=== PATIENT | male | born 1955 | race Caucasian/White ===

== ENCOUNTER 2024-04-08 15:08 | Emergency (ER) | payer MEDICARE ==
[2024-04-08] MEDS ORDERED: Lidocaine 1% 5 ML VIAL INFILT ONE (15:09)
[2024-04-08] MEDS ORDERED: Amoxicillin/Clavulanate K 875-125 MG Tab PO ONE (15:09)
== END 2024-04-08 16:00 | disposition home or self-care (01) ==
LOC: FB.ED 15:08
DX: L02.511 Cutaneous abscess of right hand (principal)
CPT/HCPCS: 10060; 26010; 99283; A9270

== ENCOUNTER 2024-10-08 08:07 | Day surgery (SDC) | payer MEDICARE ==
[~2024-10-08 08:07] MED LIST: Sodium Chloride 0.9% 10 ML Syringe FLUSH PRN
[2024-10-08] MEDS ORDERED: Propofol 200 MG/20 ML SDV IV ONE (08:08)
[2024-10-08] MEDS ORDERED: Lidocaine 1% 5 ML VIAL INJECT ONE (08:08)
[2024-10-08] MEDS: Lactated Ringers 1,000 ML IV SCH (08:32)
[2024-10-08] MEDS: Simethicone Drops 40 MG/0.6 ML 30 ML Bottle ONE (09:56)
== END 2024-10-08 11:27 | disposition home or self-care (01) ==
LOC: FB.SDS 08:07
PROVIDERS: ATTEND Surgery
DX: Z12.11 Encounter for screening for malignant neoplasm of colon (principal); R19.5 Other fecal abnormalities; K57.30 Diverticulosis of large intestine without perforation or abscess without bleeding; K21.9 Gastro-esophageal reflux disease without esophagitis; E78.00 Pure hypercholesterolemia, unspecified; Z87.891 Personal history of nicotine dependence; Z79.899 Other long term (current) drug therapy
CPT/HCPCS: A9270-GY; J2003; J2704; J7120